=== PATIENT | male | born 1975 | race Caucasian/White ===

== ENCOUNTER 2021-09-22 10:25 | Emergency (ER) | payer BC ==
[2021-09-22] MEDS ORDERED: Sodium Chloride 0.9% 1,000 ML IV ONE (10:34)
[2021-09-22 11:08] LABS: ANION GAP 11.5 mEq/L (7-13)
== END 2021-09-22 11:32 | disposition home or self-care (01) ==
LOC: DL.ED 10:25
DX: R55 Syncope and collapse (principal); F43.0 Acute stress reaction; Z88.5 Allergy status to narcotic agent; Z88.0 Allergy status to penicillin; Z88.1 Allergy status to other antibiotic agents; Z88.8 Allergy status to other drugs, medicaments and biological substances
CPT/HCPCS: 36415; 71045; 80053; 81003; 82947; 83605; 84484; 85025; 87040; 93005; 96360; 99284-25; J7030